=== PATIENT | male | born 2000 | race Caucasian/White ===

== ENCOUNTER 2024-12-18 06:30 | Emergency (ER) | payer OTHER, SELFPAY ==
[2024-12-18 06:40] VITALS: BP 124/56; PULSE 62; RESP 16; TEMP 36.7; O2SAT 99; BMI 30.2
--- NOTE | 2024-12-18 06:43 | DI.RAD.S_ITS ---
PROCEDURE: XR SHOULDER LT MIN 2V INDICATIONS: L shoulder pain ?disloc TECHNIQUE: 3 views of the shoulder were acquired. COMPARISON: None. FINDINGS: Bones: No fractures or dislocations. No suspicious bony lesions. Visualized ribs appear intact. Soft tissues: No suspicious soft tissue calcifications. IMPRESSION: No acute bony abnormality. Dictated by: Ryley Candelario M.D. on 12/18/2024 at 7:46 Approved by: Ryley Candelario M.D. on 12/18/2024 at 7:47
--- NOTE | 2024-12-18 07:12 | ED_ITS ---
HPI - Extremity Injury (Upper) General Chief Complaint: Extremity Injury, Upper Stated Complaint: Dislocated lt shoulder Time Seen by Provider: 12/18/24 06:43 Source: patient Mode of arrival: Ambulatory History of Present Illness HPI narrative: 24 years old male came today complaining of left shoulder pain after he was doing a chest press on Thursday night and feeling pop of the left shoulder backward then the left shoulder was retracted on his own. He was able to move his left shoulder without limitation. He denied any neck pain, back pain, chest pain, difficulty breathing, nausea vomiting, numbness weakness on his arms or hands. He is right-handed. Related Data Home Medications ?Medication ?Instructions ?Recorded ?Confirmed No Known Home Medications 12/18/2411/23 Allergies Allergy/AdvReac Type Severity Reaction Status Date / Time No Known Drug Allergies Allergy Verified 12/18/24 06:39 Review of Systems Review of Systems Narrative: Positive for left shoulder pain. Negative for chest pain, difficulty breathing, nausea vomiting, numbness weakness on his arms or hands. Patient History Smoking Status: Current every day smoker tobacco type: cigarettes and smokeless tobacco Alcohol type: beer Exam Initial Vital Signs Initial Vital Signs: Vital Signs Temperature 98.1 F 12/18/24 06:40 Pulse Rate 62 12/18/24 06:40 Respiratory Rate 16 12/18/24 06:40 Blood Pressure 124/56 L 12/18/24 06:40 Pulse Oximetry 99 12/18/24 06:40 Oxygen Delivery Method Room Air 12/18/24 06:40 Const General: cooperative, well developed and No acute distress Neck Neck: normal visual inspection and supple Resp Other: Clear to auscultation bilaterally. No rhonchi or wheezing. No respiratory distress. Cardio Other: Normal S1-S2 without murmur. Regular rhythm. Skin General: no rashes or lesions noted Neuro Other: Normal sensation in both shoulders. Normal muscle strain on the infraspinatus muscle bilaterally. Extrem Other: Decreased resistance strength 4/5 of the left supraspinatus muscle strength testing. Normal sensation on both shoulders. 2+ left radial pulse. Normal range of motion of the left shoulder full flexion, extension, abduction. No painful arc test on the left shoulder. He was able to touch his left hand to the right shoulder. Course Orders Ordered: ED Orders 12/18/24 06:43 XR shoulder LT 2+ views Stat Vital Signs Vital signs: Vital Signs - 8 hr 12/18/24 06:40 Temperature 98.1 F Pulse Rate 62 Respiratory Rate 16 Blood Pressure 124/56 L Pulse Oximetry 99 Oxygen Delivery Method Room Air MDM - Extremity Injury (Upper) Imaging Data Left shoulder x-ray: Radiologist's Impression: PROCEDURE: XR SHOULDER LT MIN 2V INDICATIONS: L shoulder pain ?disloc TECHNIQUE: 3 views of the shoulder were acquired. COMPARISON: None. FINDINGS: Bones: No fractures or dislocations. No suspicious bony lesions. Visualized ribs appear intact. Soft tissues: No suspicious soft tissue calcifications. IMPRESSION: No acute bony abnormality. Dictated by: Ryley Candelario M.D. on 12/18/2024 at 7:46 Approved by: Ryley Candelario M.D. on 12/18/2024 at 7:47 [facility] Narrative Medical decision making narrative: 24 years old male came today complaining of shoulder pain after injury during chest press exercise on Thursday night and he thought the dislocation when back on his own. He has normal sensation on both shoulder. Mild decreased strength on the left supraspinatus muscle strength. 2+ left radial pulse. He is right- handed. Normal neck movement and denied any neck pain. I reviewed the x-ray of the left shoulder independently show no fracture or dislocation. He was able to touch his left hand to the right shoulder. I asked him to sit up his primary care doctor or orthopedist for follow-up left rotator cuff injury. He will take Tylenol alternating ibuprofen as needed for pain control and drink plenty of fluid. I asked him to be off strenuous exercise for the next 2-3 weeks. Discharge Plan Departure Patient Disposition: Home Clinical Impression: Injury of left rotator cuff Instructions: DI for Rotator Cuff Injury, Rotator Cuff Injury Activity Restrictions/Additional Instructions: No strenuous exercise for the next 2-3 weeks. Please set up primary care doctor for follow-up orthopedist follow-up for left ovary due to cuff injury next 2-3 weeks before going back to strenuous exercise. Please take Tylenol alternating ibuprofen as needed for pain with loss of fluid. Prescriptions: No Action No Known Home Medications Stand Alone Forms: Patient Portal/API
[2024-12-18 07:42] VITALS: BP 120/62; PULSE 62; RESP 20; O2SAT 100
== END 2024-12-18 07:43 | disposition home or self-care (01) ==
PROVIDERS: Emergency Provider Emergency Medicine
DX: S46.002A Unspecified injury of muscle(s) and tendon(s) of the rotator cuff of left shoulder, initial encounter (principal); X50.0XXA Overexertion from strenuous movement or load, initial encounter
CPT/HCPCS: 73030; 99281; 99283